=== PATIENT | male | born 1985 | race Caucasian/White ===

== ENCOUNTER → 2020-10-04 | Day surgery (SDC) | payer MEDICAID ==
[2020-09-28 16:35] LABS: BASOPHILS # (AUTO) 0.1 X10'3 (0-0.2); BASOPHILS % (AUTO) 0.9 % (0-1); EOSINOPHILS # (AUTO) 0.1 X10'3 (0-0.9); EOSINOPHILS % (AUTO) 0.9 % (0-6); LYMPHOCYTES # (AUTO) 1.4 X10'3 (1.1-4.8); LYMPHOCYTES % (AUTO) 16.8 % (21-51); MEAN CORPUSCULAR HGB CONC 34.1 g/dL (33.0-36.5); MEAN CORPUSCULAR VOLUME 93.8 FL (78-98); MEAN PLATELET VOLUME 7.9 FL (7.4-10.4); MONOCYTES % (AUTO) 11.4 % (2-12); NEUTROPHILS # (AUTO) 6.1 X10'3 (1.8-7.7); PRE OP HEMATOCRIT 45.3 % (42.0-52.0); PRE OP HEMOGLOBIN 15.5 g/dL (14.0-17.9); PRE OP PLATELET COUNT 424 X10'3 (140-440); RED BLOOD COUNT 4.83 X10'6 (4.70-6.10)
[2020-09-28 17:05] LABS: ALBUMIN 4.1 G/DL (3.4-5.0); ALBUMIN/GLOBULIN RATIO 1.1 (1.1-1.5); ALKALINE PHOSPHATASE 77 IU/L (46-116); BLOOD UREA NITROGEN 10 MG/DL (7-18); BUN/CREATININE RATIO 10.2 (5.4-32.0); CALCIUM 9.1 MG/DL (8.5-10.1); CHLORIDE 103 MMOL/L (99-107); CREATININE 0.98 MG/DL (0.60-1.10); PRE OP ALT 46 U/L (30-65); PRE OP ANION GAP 11 (8-16); PRE OP AST 25 U/L (10-37); PRE OP BILIRUB, TOTAL 0.4 MG/DL (0.0-1.0); PRE OP GLUCOSE 96 MG/DL (70-104); PRE OP POTASSIUM 3.8 MMOL/L (3.4-5.1); PRE OP SODIUM 139 MMOL/L (135-145); TOTAL CARBON DIOXIDE 25.4 MMOL/L (24-32); eGFR 88 ML/MIN
[~2020-10-04] VITALS: Ht 172.7 cm; Wt 80.0 kg
[~2020-10-04] MED LIST: HYDR-3972 PO; IBUP-2417 PO; LIDOcaine 1%/PF 5ML 10 MG/ML VIAL ONE; MIDAZolam 1 MG/ML 5ML VIAL ONE; ROPIVAcaine 0.5% (5mg/ml) 30ml vial ONE; cefazolin/dext.iso 2gm/100ml IV ONE; dexamethasone sod phosphate 10mg/ml inj ONE; famotidine 20mg tablet PO ONE; fentaNYL/PF 50MCG/1 ML 2ML syringe ONE; ketorolac trometh. 30mg/ml inj. ONE; meperidine/PF 25mg/ml syringe IV PRN; morphine 2 MG/ML inj. syringe IV PRN; morphine 4 MG/ML inj SYRINge IV PRN; ondansetron/PF 4mg/2ml inj IV PRN; ondansetron/PF 4mg/2ml inj ONE; proCHLORperazine 10 MG/2 ml inj IV PRN; propofol inj 20 ML IV ONE; ringers solution, lacted 1,000 ML IV SCH; sevoflurane 250ml liquid IH ONE; vancomycin 1,500 MG in NS 300ml IV soln IV ONE
[2020-10-04 11:56] VITALS: BP 128/85
[2020-10-04 14:53] VITALS: BP 133/86
[2020-10-04 15:03] VITALS: BP 130/86
[2020-10-04 15:13] VITALS: BP 131/80
[2020-10-04 15:23] VITALS: BP 128/78
--- NOTE | 2020-10-04 15:26 | NUR ---
PT AWAKE DYLON PO'S VSS NO DISTRESS, DC INSTR GIVEN NO ?'S OR CONCERNS. MEETS CRITERIA TO DC HOME. Addendum: 10/04/20 at 1526 by Maty Kothari RN Amended: Links added.
== END | disposition home or self-care (01) ==
LOC: PAS 11:21
PROVIDERS: ATTEND Orthopaedic Surgery
DX: S82.842A Displaced bimalleolar fracture of left lower leg, initial encounter for closed fracture (principal); G89.18 Other acute postprocedural pain; Z72.89 Other problems related to lifestyle; Z79.899 Other long term (current) drug therapy; W10.8XXA Fall (on) (from) other stairs and steps, initial encounter; Y93.89 Activity, other specified; Y92.89 Other specified places as the place of occurrence of the external cause; Y99.8 Other external cause status
CPT/HCPCS: 27792; 36415; 64445; 76942; 80053; 82948; 85025; 93005; C1713; J1100; J1885; J2250; J2405; J2704; J3010; J3370; J7040; J7120; A4215; A4618; A6449; A7000; J2795